=== PATIENT | female | born 1955 | race Two or more races ===

== ENCOUNTER 2018-11-06 05:16 | Day surgery (SDC) | payer OTHER ==
[~2018-11-06 05:16] MED LIST: LIPITOR20 MG PO; LOSARTAN-HCTZ1 EACH PO; METFORMIN HCL500 MG; SYNTHROID88 MCG PO
[2018-11-06] MEDS ORDERED: COLACE100 MG PO (08:00)
[2018-11-06] MEDS ORDERED: PERCOCET 5-3251 EACH PO (08:00)
== END 2018-11-06 13:25 | disposition home or self-care (01) ==
LOC: CIR.AMB 05:16
DX: K64.8 Other hemorrhoids (principal)

== ENCOUNTER 2023-12-13 07:21 | Outpatient (CLI) | payer OTHER ==
[~2023-12-13 07:21] MED LIST changes: +COLACE100 MG PO; +PERCOCET 5-3251 EACH PO
[2023-12-13 08:25] LABS: PH,URINE 5.5 (5.0-8.0); URINE APPEARANCE Clear; URINE BILIRRUBIN Negative (NEGATIVE); URINE BLOOD Negative; URINE COLOR Yellow; URINE GLUCOSE Negative (NEGATIVE); URINE KETONE Negative (NEGATIVE); URINE LEUKOCYTE Small; URINE NITRATE Negative; URINE PROTEIN Negative (NEGATIVE); URINE UROBILINOGEN 0.2 E.U./dl
[2023-12-13 08:30] LABS: URINE BACTERIA 3356.5 uL (0.0-1933); URINE EPITHELIAL CELLS 60.4 uL (0.0-38.8); URINE RBC 11.9 uL (0.0-20.8); URINE WBC 129.5 uL (0.0-23.2)
[2023-12-13 09:00] LABS: HEMATOCRIT 35.4 % (36.0-45.00); HEMOGLOBIN 12.2 g/dL (12.0-15.00); MEAN CELL VOLUME 93.2 fL (80.00-100.00); MEAN CORPUSCULAR HEMOGLOBIN 32.1 pg (27.00-32.0); MEAN CORPUSCULAR HGB CONC 34.4 g/dl (32.0-36.0); PLATELET COUNT 231 K/uL (150-450); RED BLOOD COUNT 3.79 M/uL (4.00-6.00); RED CELL DISTRIBUTION WIDTH 13.8 % (11.5-14.5)
[2023-12-13 09:26] LABS: INR 1.02; PARTIAL THROMBOPLASTIN TIME 28.5 SECONDS (22.0-34.0); PROTHROMBIN TIME 11.1 SECONDS (9.0-11.5)
[2023-12-13 09:35] LABS: ALBUMIN 4.1 gm/dL (3.4-5.0); BILIRUBIN TOTAL 0.63 mg/dL (0.3-1.2); CALCIUM 9.5 mg/dL (8.5-10.1); CREATININE SERUM 0.98 mg/dL (0.55-1.02); GFR 56.44; GLOBULINA 3.1 G/DL (2.4-3.5); POTASSIUM 4.02 mEq/L (3.5-5.1); TOTAL PROTEIN 7.2 gm/dL (6.4-8.2)
== END 2023-12-13 07:37 | disposition home or self-care (01) ==
LOC: LAB 07:21
PROVIDERS: ATTEND Otolaryngology Otolaryngology/Facial Plastic Surgery
DX: D50.9 Iron deficiency anemia, unspecified (principal); D68.9 Coagulation defect, unspecified; Z13.1 Encounter for screening for diabetes mellitus; Z32.00 Encounter for pregnancy test, result unknown; Z01.89 Encounter for other specified special examinations; R94.31 Abnormal electrocardiogram [ECG] [EKG]

== ENCOUNTER → 2024-02-16 07:34 | Outpatient (CLI) | payer OTHER | END | disposition home or self-care (01) | LOC: NUCLEAR 07:00 | PROVIDERS: ATTEND Internal Medicine | DX: I20.9 Angina pectoris, unspecified (principal) ==